=== PATIENT | male | born 1985 | race Caucasian/White ===

== ENCOUNTER → 2021-01-01 | Outpatient (REF) | LOC: COL.LAB 01:34 | DX: Z02.83 Encounter for blood-alcohol and blood-drug test (principal) ==

== ENCOUNTER 2022-05-13 15:00 | Outpatient (RCR) | payer OTHER | END 2022-06-05 | disposition home or self-care (01) | LOC: MKS.ESL.PT | DX: S83.411D Sprain of medial collateral ligament of right knee, subsequent encounter (principal); X58.XXXD Exposure to other specified factors, subsequent encounter ==